=== PATIENT | male | born 2000 | race Caucasian/White ===

== ENCOUNTER 2024-07-07 19:20 | Emergency (ER) | payer BC, SELFPAY ==
[2024-07-07 19:35] VITALS: BP 179/116; PULSE 76; RESP 16; TEMP 36.5; O2SAT 99
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
[2024-07-07 22:18] VITALS: BP 146/84; PULSE 75; RESP 14; O2SAT 99
== END 2024-07-07 22:19 | disposition home or self-care (01) ==
PROVIDERS: Emergency Provider Emergency Medicine
DX: T23.252A Burn of second degree of left palm, initial encounter (principal); T31.0 Burns involving less than 10% of body surface; X15.3XXA Contact with hot saucepan or skillet, initial encounter; Y93.G3 Activity, cooking and baking
CPT/HCPCS: 99282